=== PATIENT | female | born 1995 | race African-American/Black ===

== ENCOUNTER 2017-01-30 20:51 | Emergency (ER) | payer OTHER ==
[~2017-01-30] VITALS: Ht 175.3 cm; Wt 79.5 kg
[2017-01-30 20:57] VITALS: BP 146/64; PULSE 68; TEMP 98
== END 2017-01-30 21:38 | disposition home or self-care (01) ==
LOC: COL.ER 20:51
DX: S00.03XA Contusion of scalp, initial encounter (principal); V43.52XA Car driver injured in collision with other type car in traffic accident, initial encounter

== ENCOUNTER 2017-09-17 15:16 | Emergency (ER) | payer OTHER ==
[~2017-09-17] VITALS: Ht 175.3 cm; Wt 76.4 kg
[2017-09-17 15:19] VITALS: TEMP 97.6
[2017-09-17] MEDS ORDERED: DEPO-PROVER150 MG/M1 IM (15:33)
[2017-09-17 15:53] LABS: COLLECTION METHOD CLEAN CATCH
[2017-09-17 16:03] LABS: BASO % 0.3 % (0.0-2.0); EOS # 0.2 (0.0-0.7); EOS % 6.2 % (0-4.0); GRAN # 1.5 (1.4-6.5); HEMATOCRIT 43.5 % (37.0-47.0); HEMOGLOBIN 13.9 g/dl (12.5-16.0); LYMPH # 1.1 (1.2-3.4); LYMPH % 35.1 % (20.0-51.0); MEAN CELL VOLUME 86 fl (80.0-100.0); MEAN CORPUSCULAR HEMOGLOBIN 28 pg (27.0-31.0); MEAN CORPUSCULAR HGB CONC 32 g/dl (33.0-37.0); MEAN PLATELET VOLUME 10.4 fl (7.4-10.4); MONO # 0.4 (0.1-0.6); MONO % 11.4 % (1.7-9.3); MUCOUS Present /lpf; PH 5 (5-8); PLATELET COUNT 268 K/mm3 (130-400); RED BLOOD COUNT 5.04 M/mm3 (4.10-5.30); REDCELL DISTRIBUTION WIDTH-CV 13.9 % (11.5-14.5); SQUAMOUS EPITHELIAL 0-2 /hpf; URINE APPEARANCE Clear; URINE BACTERIA None Seen /hpf; URINE BILIRUBIN Negative (NEGATIVE); URINE BLOOD Negative (NEGATIVE); URINE COLOR Yellow; URINE GLUCOSE Negative (NEGATIVE); URINE KETONE 1+ (NEGATIVE); URINE LEUKOCYTE ESTERASE Negative (NEGATIVE); URINE NITRATE Negative (NEGATIVE); URINE PROTEIN(semi-quant) 1+ (NEGATIVE); URINE RBC 0-2 /hpf; URINE UROBILINOGEN >=4.0 mg/dL (NEGATIVE)
[2017-09-17 16:19] LABS: ALBUMIN 4.2 gm/dL (3.5-5.0); BILIRUBIN,TOTAL 0.8 mg/dL (0.0-1.0); C-REACTIVE PROTEIN 2.3 mg/dL (0.0-0.9); CALCIUM 9.2 mg/dL (8.4-10.2); CREATININE, serum 1.07 mg/dL (0.52-1.25); POTASSIUM 3.8 mmol/L (3.4-5.0); TOTAL PROTEIN 8.6 gm/dL (6.4-8.2)
[2017-09-17] MEDS ORDERED: ZOFRAN ODT4 MG PO (16:36)
[2017-09-17 17:02] VITALS: BP 117/75; PULSE 61
== END 2017-09-17 17:01 | disposition home or self-care (01) ==
LOC: COL.ER 15:16
PROVIDERS: Physician Assistant
DX: R11.2 Nausea with vomiting, unspecified (principal); R19.7 Diarrhea, unspecified; R10.31 Right lower quadrant pain; R10.13 Epigastric pain
CPT/HCPCS: J2405; J7030

== ENCOUNTER 2019-02-14 06:54 | Emergency (ER) | payer OTHER ==
[~2019-02-14] VITALS: Ht 175.3 cm; Wt 81.8 kg
[~2019-02-14 06:54] MED LIST: DEPO-PROVER150 MG/M1 IM; ZOFRAN ODT4 MG PO
[2019-02-14 07:03] VITALS: TEMP 98.3
[2019-02-14 07:29] LABS: COLLECTION METHOD CLEAN CATCH
[2019-02-14 07:35] LABS: BASO % 0.4 % (0.0-2.0); EOS # 0.2 (0.0-0.7); EOS % 3.1 % (0-4.0); GRAN % 57.4 % (42.2-75.2); HEMATOCRIT 33.1 % (37.0-47.0); HEMOGLOBIN 10.5 g/dl (12.5-16.0); LYMPH # 1.6 (1.2-3.4); LYMPH % 30.8 % (20.0-51.0); MEAN CELL VOLUME 82 fl (80.0-100.0); MEAN CORPUSCULAR HEMOGLOBIN 26 pg (27.0-31.0); MEAN CORPUSCULAR HGB CONC 32 g/dl (33.0-37.0); MEAN PLATELET VOLUME 10.4 fl (7.4-10.4); MONO # 0.4 (0.1-0.6); MONO % 8.1 % (1.7-9.3); PLATELET COUNT 281 K/mm3 (130-400); RED BLOOD COUNT 4.02 M/mm3 (4.10-5.30); REDCELL DISTRIBUTION WIDTH-CV 14.2 % (11.5-14.5)
[2019-02-14 07:42] LABS: MUCOUS Present /lpf; PH 5 (5-8); SQUAMOUS EPITHELIAL 0-2 /hpf; URINE APPEARANCE Clear; URINE BACTERIA None Seen /hpf; URINE BILIRUBIN Negative (NEGATIVE); URINE BLOOD 3+ (NEGATIVE); URINE COLOR Yellow; URINE GLUCOSE Negative (NEGATIVE); URINE KETONE Trace (NEGATIVE); URINE LEUKOCYTE ESTERASE Negative (NEGATIVE); URINE NITRATE Negative (NEGATIVE); URINE PROTEIN(semi-quant) Negative (NEGATIVE); URINE RBC >50 /hpf
[2019-02-14 07:46] LABS: ALANINE AMINOTRANSFERASE 13 U/L (9-52); ALBUMIN 3.9 gm/dL (3.5-5.0); ALKALINE PHOSPHATASE 57 U/L (50-136); ANION GAP 9 mmol/L (7-16); AST,SGOT 32 U/L (15-37); BILIRUBIN,TOTAL 0.1 mg/dL (0.0-1.0); BLOOD UREA NITROGEN 14 mg/dL (7-17); CALCIUM 8.8 mg/dL (8.4-10.2); CARBON DIOXIDE 23 mmol/L (22-30); CHLORIDE 107 mmol/L (98-107); CREATININE, serum 0.95 (0.52-1.25); GLUCOSE 81 mg/dL (74-106); LIPASE 72 U/L (23-300); SODIUM 139 mmol/L (137-145); TOTAL PROTEIN 6.9 gm/dL (6.4-8.2)
[2019-02-14 07:47] LABS: C-REACTIVE PROTEIN < 0.5 mg/dL (0.0-0.9)
[2019-02-14 09:00] VITALS: BP 131/88; PULSE 60
== END 2019-02-14 09:00 | disposition home or self-care (01) ==
LOC: COL.ER 06:54
PROVIDERS: Family Medicine
DX: R10.31 Right lower quadrant pain (principal)
CPT/HCPCS: J2405; J7030; Q9967